=== PATIENT | male | born 1950 | race Caucasian/White ===

== ENCOUNTER 2020-10-16 17:03 | Emergency (ER) | payer MEDICARE, SELFPAY ==
--- NOTE | ~2020-10-16 | XR_ITS ---
XR finger 1st RT min 2V 10/16/2020 17:34 Indication: Right first finger pain Procedure: 3 views right first finger Comparison: No prior studies for comparison. Findings: No fracture, subluxation or dislocation. Mild degenerative changes of the MCP joint. There is a soft tissue laceration adjacent to the distal phalanx. No foreign bodies. Impression: 1: No acute fracture. Reviewed, dictated and finalized at location A. Impression: 1: No acute fracture.
[2020-10-16 17:12] VITALS: BP 144/82; PULSE 69; RESP 18; TEMP 36.8; O2SAT 98
--- NOTE | 2020-10-16 17:29 | ED.WOUNDLAC ---
HPI - Wound/Laceration General Chief Complaint: Wound/Laceration Stated Complaint: thumb vs table saw Time Seen by Provider: 10/16/20 17:06 Source: patient Mode of arrival: ambulatory Limitations: no limitations History of Present Illness HPI narrative: This is a 69-year-old male that presents the emergency department for right first finger laceration sustained just prior to arrival. Reports he was cutting down boards with a table saw. Reports he accidentally cut his thumb. Reports bleeding and pain to the area. He is not up-to-date on tetanus. Denies decreased range of motion or numbness. Related Data Home Medications Medication Instructions Recorded Confirmed aspirin 81 mg tablet,delayed 81 mg PO DAILY 08/03/19 09/06/20 release ferrous sulfate 325 mg (65 mg 325 mg PO BID 09/08/19 09/06/20 iron) tablet omega-3 fatty acids 1,000 mg 2,000 mg PO BID cap 09/06/20 09/06/20 capsule Allergies Allergy/AdvReac Type Severity Reaction Status Date / Time No Known Allergies Allergy Verified 09/06/20 09:35 Review of Systems Review of Systems: Narrative: CONSTITUTIONAL: Denies fever SKIN: Reports laceration NEUROLOGIC: Denies numbness All systems reviewed & are unremarkable except as noted in HPI and below PMFSH Past Medical History Medical History BMI 29.0-29.9,adult Coronary artery disease Diabetes Last A1C = 6.8 03/29/2020 Gout Heart disease Surgical History Surgical History History of bladder surgery 04/08/2019 History of heart bypass surgery 04/11/2019 Family History Family History Father Diabetes mellitus Hypertension Family history of cardiovascular disease Patient's father is , Onset Age: 74 Heart disease Sibling Diabetes mellitus Family history of cardiovascular disease Family history of cardiac disorder, Onset Age: 58 Mother Hypertension Family history of cardiovascular disease, Onset Age: 86 Cerebrovascular accident, Onset Age: 86 Social History Social History Smoking status: Never smoker Alcohol intake: current Additional living arrangements comments: , daughter & grandson Additional occupation/education comments: [employer] Exam Narrative: Exam Narrative: GENERAL: Well-appearing, well-nourished, and in no acute distress. HEAD: Normocephalic, atraumatic. EYES: EOMI. EXTREMITIES: Normal range of motion. No edema or obvious deformity. Right first finger 2.5cm flap laceration to the radial aspect. Normal sensation SKIN: Warm, dry, no rash. NEURO: No focal deficits. Alert and oriented x3. PSYCH: Normal mood and affect Course Vital Signs Vital signs: Vital Signs Temperature 98.2 F 10/16/20 17:12 Pulse Rate 69 10/16/20 17:12 Respiratory Rate 18 10/16/20 17:12 Blood Pressure 144/82 H 10/16/20 17:12 Pulse Oximetry 98 10/16/20 17:12 Temperature 98.2 F 10/16/20 17:12 Pulse Rate 60 10/16/20 18:32 Respiratory Rate 18 10/16/20 18:32 Blood Pressure 125/72 10/16/20 18:32 Pulse Oximetry 94 10/16/20 18:32 Procedures Laceration Laceration 1: Date: 10/16/20 Time: 19:31 Site: hand Side (If applicable): right Size (cm): 2.5 Description: flap Depth: simple, single layer Local Anesthetic: lidocaine 1% Amount of anesthesia used (mL): 3 Pre-repair: irrigated ====== Skin Level ====== Skin layer closed with: nylon Size (cm): 4-0 Number of sutures: 5 Technique: simple, interrupted ====== Subcutaneous Layer ====== ====== Muscle Layer ====== ====== Tendon Layer ====== MDM - Wound/Laceration MDM Narrative Medical decision making narrative: Patient presents the emergen
[2020-10-16] MEDS: TETANUS,DIPHTHERIA,AC PERTUSSIS ADULT (0.5 ML) BOOSTRIX IM (17:37)
[2020-10-16 18:32] VITALS: BP 125/72; PULSE 60; RESP 18; O2SAT 94
[2020-10-16 20:01] VITALS: BP 132/75; PULSE 84; RESP 18; O2SAT 100
== END 2020-10-16 20:03 | disposition home or self-care (01) ==
PROVIDERS: Emergency Provider Emergency Medicine; PCP Family Medicine
DX: S61.011A Laceration without foreign body of right thumb without damage to nail, initial encounter (principal); I25.10 Atherosclerotic heart disease of native coronary artery without angina pectoris; E11.9 Type 2 diabetes mellitus without complications; M10.9 Gout, unspecified; I51.9 Heart disease, unspecified; Z79.82 Long term (current) use of aspirin; Z23 Encounter for immunization; W31.2XXA Contact with powered woodworking and forming machines, initial encounter
CPT/HCPCS: 12001; 73140; 90471; 90715; 99283

== ENCOUNTER → 2020-10-18 13:21 | Outpatient (CLI) | payer MEDICARE, SELFPAY ==
--- NOTE | ~2020-10-18 | XR_ITS ---
XR foot RT 2V DATE: 10/18/2020 13:48 INDICATION: Right foot pain TECHNIQUE: AP and lateral views COMPARISON: None FINDINGS: No fracture or dislocation, periosteal reaction or bone destruction. Mild osteoarthritis of the first metatarsophalangeal and multiple interphalangeal joints. No erosive change. IMPRESSION: Mild polyarticular osteoarthritis Reviewed, dictated and finalized at location A.
== END ==
PROVIDERS: PCP Family Medicine; Visit Provider Physician Assistant
DX: M19.071 Primary osteoarthritis, right ankle and foot (principal)
CPT/HCPCS: 73620

== ENCOUNTER 2020-12-11 11:30 | Emergency (ER) | payer MEDICARE, SELFPAY ==
--- NOTE | 2020-12-11 11:35 | ED.URI ---
HPI - URI/Sore Throat General Chief Complaint: Upper Respiratory Infection Stated Complaint: SINUS CONGESTION/COUGH/SORE THROAT Source: patient and RN notes reviewed Limitations: no limitations History of Present Illness HPI Narrative: The patient, a non-smoker/ occ drinker on several meds inv oral diabetics, presents with half week history of scratchy/sore throat, congestion, cough, and mild hoarseness . He has completed single vaccination; no loss of taste/smell, CP, rash, S OB, vomiting/diarrhea,. Symptoms are mild, worse at night Related Data Home Medications Medication Instructions Recorded Confirmed aspirin 81 mg tablet,delayed 81 mg PO DAILY 08/03/19 12/11/20 release ferrous sulfate 325 mg (65 mg 325 mg PO BID 09/08/19 12/11/20 iron) tablet Allergies Allergy/AdvReac Type Severity Reaction Status Date / Time No Known Allergies Allergy Verified 12/11/20 11:36 Review of Systems Review of Systems: Narrative: General/Constitutional: No weight loss,fever Eyes: N0: Redness,discharge Ears/Nose/Throat: No: Epistaxis,ear discharge Respiratory: Denies: Hemoptysis Gastrointestinal: No Vomiting, Bleeding-rectal Skin: No Lumps, eruption Neurologic: No Focal Weakness,Sz Hematologic: Denies: Petechiae/Purpura Psychiatric: No: Suicida ideationl All Other Systems: Reviewed and Negative [facility] Past Medical History Medical History BMI 29.0-29.9,adult Coronary artery disease Diabetes Last A1C = 6.8 03/29/2020 Gout Heart disease Surgical History Surgical History History of bladder surgery 04/08/2019 History of heart bypass surgery 04/11/2019 Family History Family History Father Diabetes mellitus Hypertension Family history of cardiovascular disease Patient's father is , Onset Age: 74 Heart disease Sibling Diabetes mellitus Family history of cardiovascular disease Family history of cardiac disorder, Onset Age: 58 Mother Hypertension Family history of cardiovascular disease, Onset Age: 86 Cerebrovascular accident, Onset Age: 86 Social History Social History Alcohol intake: current Additional living arrangements comments: , daughter & grandson Additional occupation/education comments: [employer] Comments At time of signature, agree with nursing past medical, surgical, social and family history. There is no relevant family history pertinent to the presenting complaint Exam Narrative: Exam Narrative: General Appearance: Well appearing, Well nourished EYE: PERRLA, Conjunctiva clear Ears: Auditory canal normal, TM normal Nose: Rhinorrhea, Mucousal erythema Mouth/Throat: MM moist, Uvula midline, Pharyngeal erythema Neck: Supple, No adenopathy Respiratory: No respiratory distress, Breath sounds equal, Clear to auscultation Cardiovascular: RRR, No JVD Musculoskeletal: Non tender, Normal strength Skin: Warm, Dry Neurological: A&O x3, CN II-XII intact Psychiatric: Normal mood, Normal affect Course Vital Signs Vital signs: Vital Signs Temperature 97.3 F L 12/11/20 11:39 Pulse Rate 61 12/11/20 11:39 Respiratory Rate 20 12/11/20 11:39 Blood Pressure 155/77 H 12/11/20 11:39 Pulse Oximetry 100 12/11/20 11:39 Temperature 97.3 F L 12/11/20 11:39 Pulse Rate 61 12/11/20 11:39 Respiratory Rate 20 12/11/20 11:39 Blood Pressure 155/77 H 12/11/20 11:39 Pulse Oximetry 100 12/11/20 11:39 MDM - URI/Sore Throat Lab Data Labs: Lab Results 12/11/20 Range/Units 11:46 SARS-CoV-2 RNA (RT-PCR) Negative Discharge Plan Discharge Clinical Impression: Pharyngitis, acute Qualifiers: Pharyngitis/tonsillitis etiology: unspecified etiology Qualified Code(s): J02.9 - Acute ph
[2020-12-11 11:39] VITALS: BP 155/77; PULSE 61; RESP 20; TEMP 36.3; O2SAT 100
[2020-12-12 19:19] LABS: SARS-CoV-2 RNA PCR Negative
== END 2020-12-11 12:15 | disposition home or self-care (01) ==
PROVIDERS: Emergency Provider Emergency Medicine; PCP Family Medicine
DX: J02.9 Acute pharyngitis, unspecified (principal); Z20.822 Contact with and (suspected) exposure to COVID-19; I25.10 Atherosclerotic heart disease of native coronary artery without angina pectoris; E11.9 Type 2 diabetes mellitus without complications; M10.9 Gout, unspecified; Z79.82 Long term (current) use of aspirin
CPT/HCPCS: 99213; C9803; G0463; U0003; U0005

== ENCOUNTER 2021-07-30 17:21 | Emergency (ER) | payer MEDICARE, SELFPAY ==
[2021-07-30 17:26] VITALS: BP 173/73; PULSE 60; RESP 16; TEMP 35.9; O2SAT 100
--- NOTE | 2021-07-30 17:55 | ED.URI ---
HPI - URI/Sore Throat General Chief Complaint: Upper Respiratory Infection Stated Complaint: cough Source: patient and RN notes reviewed Mode of arrival: ambulatory History of Present Illness HPI Narrative: This is a 70-year-old male who presented to urgent care with complaints of a uncontrollable cough that is productive he is unsure of the color because he swallows the mucus. Patient did test positive for Covid on June 19 and had mild symptoms such as a cough for approximately 1 day. Patient notes that his cough returned which is causing him abdominal discomfort due to excessive coughing, and nasal and head congestion. Patient notes that he has not taken anything at home other than Flonase. The patient denies SOB, CP, palpitation, extremity numbness, lightheadedness, dizziness, constipation, diarrhea, chills, or fever. Related Data Home Medications Medication Instructions Recorded Confirmed aspirin 81 mg tablet,delayed 81 mg PO DAILY 08/03/19 03/06/21 release ferrous sulfate 325 mg (65 mg 325 mg PO BID 09/08/19 03/06/21 iron) tablet omega-3 fatty acids 1,000 mg 1,000 mg PO DAILY 03/06/21 03/06/21 capsule Allergies Allergy/AdvReac Type Severity Reaction Status Date / Time No Known Allergies Allergy Verified 03/06/21 08:35 Review of Systems Review of Systems: A 14 organ system Review of Systems was performed and pertinent positives included in the HPI, otherwise remaining ROS is negative. [facility] Past Medical History Medical History BMI 29.0-29.9,adult Coronary artery disease Diabetes Last A1C = 6.8 03/29/2020 Gout Heart disease Surgical History Surgical History History of bladder surgery 04/08/2019 History of heart bypass surgery 04/11/2019 Family History Family History Father Diabetes mellitus Hypertension Family history of cardiovascular disease Patient's father is , Onset Age: 74 Heart disease Sibling Diabetes mellitus Family history of cardiovascular disease Family history of cardiac disorder, Onset Age: 58 Mother Hypertension Family history of cardiovascular disease, Onset Age: 86 Cerebrovascular accident, Onset Age: 86 Social History Social History Smoking status: Never smoker Alcohol intake: current Alcohol use details: occasional Additional living arrangements comments: , daughter & grandson Additional occupation/education comments: [employer] Exam Narrative: GENERAL: This is a well-nourished, well-developed patient, in no apparent distress. HEAD: normocephalic, atraumatic. EYES: PERRL. Sclera clear/white. Vision is grossly intact. EARS: External ears normal, auditory canals clear and without drainage, TMs normal without perforation. Hearing grossly intact. NOSE: External nose normal with no obvious nasal discharge, nares without redness, no rhinorrhea. THROAT: Mucous membranes moist, posterior pharynx clear. NECK: Neck supple, non-tender without lymphadenopathy, masses or thyromegaly. CARDIOVASCULAR: Regular rate and rhythm without murmurs, gallops, or rubs. RESPIRATORY: Clear to auscultation. Breath sounds equal bilaterally. No wheezes, rales, or rhonchi. GASTROINTESTINAL: Abdomen soft, non-tender, nondistended. Bowel sounds are active. No hepato-splenomegaly, or palpable masses. No guarding. SKIN: warm, intact with no suspicious lesions or rash, good texture and turgor. NEURO: awake, alert, and oriented to person, place and time. There were no obvious focal neurologic abnormalities. Steady gait EXTREMITIES: Normal range of motion. No edema. No calf tenderness. Negative Homans sign bilaterally. BACK: Nontender without deformity or crepitance. No flank tenderness. Course Course Emergency
== END 2021-07-30 18:09 | disposition home or self-care (01) ==
PROVIDERS: Emergency Provider Nurse Practitioner; PCP Family Medicine
DX: U09.9 Post COVID-19 condition, unspecified (principal); I25.10 Atherosclerotic heart disease of native coronary artery without angina pectoris; E11.9 Type 2 diabetes mellitus without complications; M10.9 Gout, unspecified; Z95.1 Presence of aortocoronary bypass graft
CPT/HCPCS: 99213; G0463

== ENCOUNTER → 2021-09-26 07:54 | Outpatient (CLI) | payer MEDICARE, SELFPAY ==
--- NOTE | ~2021-09-26 | MR_ITS ---
EXAMINATION: MR foot RT wo con DATE: 09/26/2021 08:38 INDICATION: Right midfoot sprain TECHNIQUE: Magnetic resonance imaging (MRI) of the right foot excluding portions of the toes was perf ormed without intravenous contrast. Sequences included sagittal T1-weighted FSE, sagittal fluid sensi tive FSE STIR, coronal PD-weighted FS FSE, coronal T1-weighted FSE, axial PD-weighted FS FSE, and axi al PD-weighted FSE. COMPARISON: Right foot radiographs dated 10/18/2020 FINDINGS: Bone alignment is normal. There is marrow edema at the medial/distal corner of the cuboid surrounding a nondisplaced low signal intensity fracture line. 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 Marrow signal is otherwise normal. No other fractures identified. Mild osteoarthritis at the first me tatarsophalangeal joint. The medial and lateral stabilizing ligaments at the ankle are normal along with the spring ligament c omplex. The Lisfranc ligament complex is normal. The collateral ligament complex at the metatarsophal angeal joints are normal. The flexor and extensor tendons are normal. There is prominent thickening a nd increased signal of the lateral and horizontal components of the plantar aponeurosis consistent wi th moderate enthesopathy without discrete tear or surrounding edema to suggest acute plantar fasciiti s. Small plantar calcaneal spur. There is likely reactive edema related to the cuboid fracture in the soft tissues and musculature plantar and lateral to the cuboid. Physiologic amount of fluid in the j oint spaces. IMPRESSION: 1. 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 2. Moderate plantar enthesopathy without tear or significant surrounding edema to suggest acute plant ar fasciitis. Reviewed, dictated and finalized at location A. EYBALL REFEREE IMPRESSION: 1. 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 2. Moderate plantar enthesopathy without tear or significant surrounding edema to suggest acute plantar fasciitis.
== END ==
PROVIDERS: PCP Family Medicine; Visit Provider Podiatrist Foot & Ankle Surgery
DX: S93.611A Sprain of tarsal ligament of right foot, initial encounter (principal); X58.XXXA Exposure to other specified factors, initial encounter; M77.31 Calcaneal spur, right foot
CPT/HCPCS: 73718

== ENCOUNTER 2022-01-03 10:36 | Outpatient (CLI) | payer MEDICARE, SELFPAY ==
--- NOTE | ~2022-01-03 | US_ITS ---
US venous doppler LE RT DATE: 01/03/2022 11:10 INDICATION: Right ankle and foot swelling. History of right foot fracture of July 2021. TECHNIQUE: Real-time and color flow imaging and Doppler analysis of the veins of the right lower extr emity COMPARISON: None FINDINGS: The right greater saphenous vein is patent. There is spontaneous and phasic flow and normal augmentation and color flow signal and normal compression of the deep veins of the right lower extre mity. IMPRESSION: No evidence of deep venous thrombosis of right lower extremity Reviewed, dictated and finalized at Location A. Reviewed, dictated and finalized at location A.
== END 2022-01-03 10:37 | disposition home or self-care (01) ==
PROVIDERS: PCP Family Medicine; Visit Provider Physician Assistant
DX: M79.89 Other specified soft tissue disorders (principal)
CPT/HCPCS: 93971

== ENCOUNTER 2022-05-08 14:30 | Outpatient (RCR) | payer MEDICARE, SELFPAY ==
--- NOTE | 2022-03-14 10:08 | PTOPEVAL ---
PHYSICAL THERAPY INITIAL EVALUATION. Thank you for referring Tushar Marques to [facility].? The patient is scheduled to be seen for therapy? 2x/week for 4 weeks. Please review, sign, date and return this plan of care OJ. I agree with and certify that the following plan of care is medically necessary. Referring Physician Date Attending Provider: Agustin Parker APN *PT Outpatient Evaluation Start: 03/14/22 Evaluation Information Diagnosis L hip pain Onset 3 month Subjective Information Pt states for the last 3 Query Text:As Reported By Patient/ months he has had a slow Family increase in hip pain. It has been the worst in the last 3 weeks. He states he is feeling pretty good today, most of his pain is after sitting or laying in one position for too long, particularly in the morning. He states his pain is better after he is able to get moving. He states he works on [employer] and has started to have to push a shopping cart around because the pain will catch him and almost cause him to fall. Pt states last winter he had a boot on his R foot, this was taken off around November right around when his hip pain started. Pain Assessment Self Report Pain Assessment Left Hip(s) Reported Pain Level 0 Pain Description Sharp Pain Frequency Acute,Intermittent Lowest Pain Intensity 0 Greatest Pain Intensity 5 Pain Aggravating Factors Prolonged Position,Weight Bearing/Standing Lower Extremity Range of Motion General Lower Extremity Range of Motion WFL/Left,WFL/Right Lower Extremity Muscle Strength Testing General Lower Extremity Strength WFL/Left,WFL/Right Gross Lower Extremity Strength R hip flexion 4+/5 L hip flexion 4/5 R hip abduction 2/5 L hip abduction 3/5 otoniel hip extension 4/5 otoniel knee flexion/extension 5/5 Muscle Length Testing Two-Joint Hip Flexor Shortened Muscles Short (R) Rectus Femoris,Short (L) Rectus Femoris Right Prone Hip Internal Rotator Length 10 Left Prone Hip Internal Rotator Length ( 10 Right Prone Hip External Rotator Length 30 Left Prone Hip
--- NOTE | 2022-04-10 15:44 | PTOPPROG ---
Evaluation Information Assessment Status Progress Diagnosis L hip pain Onset 4 months Subjective Information He states his hip is getting a lot better. Pt states he is able to sleep and wake up without pain. He states at the end of his work day he is a little sore, and he feels a little pain when he is twisting. 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 He states he is able to put a pair of pants on standing up. He reports he still has the most difficulty in a soft chair. Pt reports he is better able to stand up from the ground without his hands, but still struggles. Pt reports 75% improvement in overall symptoms. Assessment PT Clinical Summary Tushar presents to therapy today for his progress report following 8 visits of therapy. Today he reports 75% improvement in overall symptoms, he reports no pain for the last 5 days. He continues to demonstrates weakness in his hips otoniel leading to gait deviations and balance deficits. Continuation of skilled physical therapy services are indicated to improve strength, balance, functional mobility, and to return to baseline function. Plan of Care Interventions Gait Training,Hot Pack/Cold Pack,Manual Therapy, Neuro Re-education,Patient/Caregiver Educati, Therapeutic Activities,Therapeutic Exercise PT Services Indicated Yes Treatment Frequency and continue 2x/wk for 4 wks Duration These treatments will address the objective and functional deficits as defined above. The patient will be advanced safely and appropriately in order for the patient to progress towards his/her prior level of function. Additional exercises will be introduced and as well as a comprehensive home exercise program upon discharge, if needed, ?to ensure carryover of functional gains achieved in the clinic. This treatment plan has been reviewed and agreement upon by the patient.
--- NOTE | 2022-05-08 15:22 | PTOPDC ---
Assessment and note entered by Rizwana Portillo, PT, DPT Evaluation Information Assessment Status Discharge Diagnosis L hip pain Onset 4 months Subjective Information Pt states his hip is doing great. Pt states he is a little sore in the morning when he first wakes up, but as soon as he gets up and moving his pain starts to decreased almost instantly. He can work and make it through an 8 hour shift without an increase in pain. He states randomly when he moves he was get a quick pain but it starts to subside. He states he can walk around work without needing to rely on a cart to help him. He reports a 1/10 as the worst pain in the last week. Reported Pain Level Pain Score 0: Self Report Assessment PT Clinical Summary Tushar presents to therapy today for his progress report following 16 visits of skilled therapy to treat his otoniel hip pain. Today he reports excellent compliance with his HEP and has progressed towards or met all of his therapy goals. Skilled physical therapy services are no longer indicated and he still be discharged at this time with instructions to continue his HEP upon discharge and to follow up with his referring provider if needed. Plan of Care PT Services Indicated No Treatment Frequency and to be discharged Duration
== END 2022-05-15 14:15 | disposition home or self-care (01) ==
LOC: ANHPT 14:30
PROVIDERS: PCP Physician Assistant; Visit Provider Nurse Practitioner
DX: M25.552 Pain in left hip (principal)
CPT/HCPCS: 97110; 97112; 97140; 97161; 97530

== ENCOUNTER 2022-07-06 12:31 | Outpatient (CLI) | payer MEDICARE, SELFPAY ==
--- NOTE | 2022-07-06 12:36 | ECHO_ITS ---
Patient Info Name: Tushar Marques Age: 71 years : 1950 Gender: Male Ht: 73 in Wt: 235 lbs BSA: 2.37 m2 HR: 69 bpm BP: 136 / 72 mmHg Technical Quality: Fair Exam Date: 07/06/2022 1:08 PM Exam Location: [facility] Patient Status: Outpatient Admit Date: 07/06/2022 Staff Ordering Physician: Chadwick Law DO Gluing Machine Feeder: Debra Holland RDCS Attending Provider: Chadwick Law DO Referring Physician: Thanh LUGO; Exam Type: CA echo doppler color flow Study Info Indications R60.0 - Localized edema Complete two-dimensional, color flow and Doppler transthoracic echocardiogram is performed. Summary 1. Complete two-dimensional, color flow and Doppler transthoracic echocardiogram is performed. 2. Left ventricular chamber dimension is normal. 3. Left ventricular systolic function is normal, estimated at 60-65%. 4. The left ventricular diastolic function is grade I diastolic dysfunction. 5. E/e' 10 is mildly elevated. 6. Global longitudinal strain is abnormal at -15.7%. 7. No pulmonary hypertension, estimated pulmonary arterial systolic pressure is 27 mmHg. Left Ventricle E/e' 10 is mildly elevated. Global longitudinal strain is abnormal at -15.7%. Left ventricular chamber dimension is normal. Left ventricular systolic function is normal, estimated at 60-65%. The left ventricular diastolic function is grade I diastolic dysfunction. Right Ventricle Right ventricular systolic function is normal and with normal TAPSE 2.2 cm. Right ventricular chamber dimension is normal. Left Atria Left atrial chamber dimension is normal. Right Atria Right atrial chamber dimension is normal. Aortic Valve The aortic valve is trileaflet. There is no aortic valve stenosis. There is no aortic valve regurgitation. Pulmonic Valve There is no pulmonic regurgitation. Mitral Valve There is no mitral valve stenosis. There is no mitral valve regurgitation. Tricuspid Valve There is no tricuspid valve regurgitation. No pulmonary hypertension, estimated pulmonary arterial systolic pressure is 27 mmHg. Pericardium/Pleural There is no pericardial effusion. Inferior Vena Cava Normal inferior vena cava with >50% collapse upon inspiration consistent with normal right atrial pressure, 5 mmHg. Aorta The aortic root size at the sinus of Valsalva is normal. Left Ventricular Outflow Tract Name Value Normal LVOT 2D LVOT Diameter 2.0 cm LVOT Doppler LVOT Peak Gradient 6 mmHg LVOT Mean Gradient 3 mmHg LVOT VTI 25 cm LVOT VTI/AV VTI Ratio 1.0 LVOT Stroke Volume 81 ml LVOT CO 5.0 l/min LVOT CI 2.1 l/min/m2 Pulmonic Valve Name Value Normal RVOT Doppler
== END 2022-07-06 12:32 | disposition home or self-care (01) ==
LOC: ANHCARD 12:34
PROVIDERS: PCP Emergency Medicine; Visit Provider Internal Medicine Cardiovascular Disease
DX: R60.0 Localized edema (principal)
CPT/HCPCS: 93306

== ENCOUNTER → 2022-09-26 14:15 | Outpatient (CLI) | payer MEDICARE, SELFPAY ==
--- NOTE | ~2022-09-26 | US_ITS ---
EXAMINATION: US scrotum doppler DATE: 09/26/2022 14:50 INDICATION: S39.94XA - Unspecified injury of external genitals, initi... . TECHNIQUE: Grayscale and Doppler ultrasound images of the testes were obtained. COMPARISON: None. FINDINGS: The right testis measures 5.3 x 2.1 x 4.5 cm. The left testis measures 4.8 x 3.7 x 3.8 cm. No testicular mass. There is increased vascularity in the left testicle. The right epididymis is hete rogeneous, with multiple cysts measuring up to 1.4 cm, and with normal vascular flow. The left epidid ymis is hypervascular, with small cysts. Complex left hydrocele. Left varicocele. Circumscribed, simp le, avascular 3.2 x 2.0 x 1.9 cm cystic lesion in the right scrotum, clearly separate from the right testicle. IMPRESSION: 1. Complex left hydrocele, likely representing a hematocele given the history of trauma. 2. Hyperemic left testicle and epididymis, also likely related to recent trauma, noting that infectio n cannot be excluded based solely on imaging. 3. Left varicocele. 4. 3.2 cm simple appearing cyst in the right scrotum, likely tunica cyst, or cyst of the epididymal b stacy or tail, and of doubtful clinical significance. Reviewed, dictated and finalized at location K. MIX OPERATOR IMPRESSION: 1. Complex left hydrocele, likely representing a hematocele given the history o f trauma. 2. Hyperemic left testicle and epididymis, also likely related to recent trauma , noting that infection cannot be excluded based solely on imaging. 3. Left varicocele. 4. 3.2 cm simple appearing cyst in the right scrotum, likely tunica cyst, or cy st of the epididymal body or tail, and of doubtful clinical significance.
== END ==
PROVIDERS: PCP Emergency Medicine; Visit Provider Emergency Medicine
DX: S39.94XA Unspecified injury of external genitals, initial encounter (principal); X58.XXXA Exposure to other specified factors, initial encounter; N43.3 Hydrocele, unspecified; I86.1 Scrotal varices
CPT/HCPCS: 76870; 93976

== ENCOUNTER 2024-01-14 11:22 | Outpatient (CLI) | payer MEDICARE, SELFPAY ==
--- NOTE | ~2024-01-14 | MR_ITS ---
Procedure: MR lumbar spine wo con Ordering provider: Kana Hargrove MD History: 73 years Male with . M54.40 - Lumbago with sciatica, unspecified side . Comparison: None. Technique: MRI lumbar spine without contrast. FINDINGS: CONUS MEDULLARIS: Normal in position and appearance. The conus ends at the level of L1. LUMBAR VERTEBRAL BODIES: Loss of volume of L4 is noted more on the left side of the body of L4 with a fracture. The fracture mixed intensity of the bone marrow. Destructive changes seen posteriorly and L5. DISK SPACES: Narrowing of the disc L4-L5 and L3-L4. T12-L1: No stenosis. L1-L2: No stenosis. Mild disc bulge. L2-L3: Severe spinal canal stenosis secondary to broad based disc bulge, facet arthropathy, and liga mentum flavum hypertrophy. Bilateral narrowing of the foramina of the root compression. L3-L4: L4-L5: Mild spinal canal stenosis secondary to broad based disc bulge with a right posterolateral di sc protrusion, facet arthropathy, and ligamentum flavum hypertrophy with narrowing of the foramina a nd nerve root compression. L5-S1: No stenosis. Disc protrusion with bilateral narrowing of the foramina and the root compressio n. PARASPINOUS SOFT TISSUES: Normal. IMPRESSION: 1. Fracture of L4 with fragment seen on the left side and with vertical defect. 2. Multilevel degenerative disc disease with the maximum changes seen at the level of L1-L2 which sh ows severe spinal canal with bilateral narrowing of the foramina and bilateral nerve root compression 3. L4-L5 disc protrusion causing narrowing of the right lateral recess and intervertebral foramina w ith root compression. Reviewed, dictated and finalized at location A. IMPRESSION: 1. Fracture of L4 with fragment seen on the left side and with vertical defect . 2. Multilevel degenerative disc disease with the maximum changes seen at the l evel of L1-L2 which shows severe spinal canal with bilateral narrowing of the f oramina and bilateral nerve root compression 3. L4-L5 disc protrusion causing narrowing of the right lateral recess and int ervertebral foramina with root compression.
== END 2024-01-14 11:23 ==
LOC: GOSHIMG 11:24
PROVIDERS: PCP Emergency Medicine; Visit Provider Emergency Medicine
DX: M54.40 Lumbago with sciatica, unspecified side (principal)
CPT/HCPCS: 72148

== ENCOUNTER 2024-02-20 09:36 | Outpatient (CLI) | payer MEDICARE, SELFPAY ==
--- NOTE | ~2024-02-20 | US_ITS ---
EXAMINATION:US venous doppler LE RT INDICATION:Right leg pain TECHNIQUE: Multiple grayscale, color flow and Doppler images of the right lower extremity deep venous systems were obtained and reviewed. COMPARISON:Ultrasound dated 01/03/2022 FINDINGS: The common femoral, superficial femoral and popliteal veins demonstrate normal respiratory variation, augmentation and compressibility. Color flow is also seen within the posterior tibial, pe roneal, greater saphenous and profunda veins. IMPRESSION: 1: No lower extremity deep venous thrombosis. Reviewed, dictated and finalized at location B.
--- NOTE | ~2024-02-20 | US_ITS ---
US arterial ankle brachial ind INDICATION: Type 2 diabetes. Previous stroke. High cholesterol. TECHNIQUE: Segmental pressures and plethysmographic and Doppler waveforms of the brachial and lower e xtremity arteries were obtained. COMPARISON: None. FINDINGS: Right and left brachial artery pressures of 143 mm Hg and 149 mm Hg, respectively, are concordant (no rmal difference <= 30 mmHg). The right ankle-brachial index (QIANA) is 1.1 (normal >= 0.9-1.0). The right great toe-brachial index ( TBI) is 0.79 (normal >= 0.60). The left QIANA is 1.22. The left TBI is 0.72. IMPRESSION: 1. Normal ankle-brachial indices. Reviewed, dictated and finalized at location B.
== END 2024-02-20 09:37 | disposition home or self-care (01) ==
PROVIDERS: PCP Emergency Medicine; Visit Provider Nurse Practitioner Family
DX: E11.59 Type 2 diabetes mellitus with other circulatory complications (principal); M79.604 Pain in right leg; M79.89 Other specified soft tissue disorders
CPT/HCPCS: 93922; 93971

== ENCOUNTER 2024-04-08 15:45 | Outpatient (RCR) | payer MEDICARE, SELFPAY ==
--- NOTE | 2024-02-22 11:01 | PTOPEVAL1 ---
Assessment and note entered by Leonela Plata, PT Evaluation Information Assessment Status Evaluation Diagnosis M54.40 ICD-10 Condition Codes (PT) M54.16,Repeated falls R29.6,R26.9,Weakness R53.1 Onset Sep 2023 Subjective Information Pt recalls falling last Sep this year, on the basement stairs while carrying a crockpot, fell forwards and to the L side landing on the concrete ; states that he tripped over a tread on the step with his R foot. Reports has been having some numbness to RLE in the past but may have been aggravated after the fall. States that he is having pain across the low back, weakness and numbness increasing going down to the R LE, sore on B upper hip area, no pain goes down to LLE, however he feels numbness and tingling and shoes feel tight bilaterally. Pain and discomfort has been worse in the past 2 weeks. States that after being in a prolonged position he feels stiff and sore. Reported Pain Level Pain Score 0: Self Report Additional Pain Score Comments Does not feel pain at the moment, the discomfort increases with prolonged standing/walking. Reports he is having difficulty with putting shoes on L side, unable to perform figure of four position to LLE. Assessment PT Clinical Summary Pt is a 73yo male patient who presents to therapy with c/o back pain radiating to RLE, demos decreased ROM to lumbar spine, significant L hip hypomobility, BLE weakness, radicular symptoms to B feet. Pt also reported falls and near fall incidents. He will greatly benefit from skilled PT to address deficits and reduce risk for falls. Plan of Care Interventions Check Out for Orthotic/Pr,Electrical Stimulation, Gait Training,Hot Pack/Cold Pack,Manual Therapy, Mechanical Traction,Neuro Re-education,Patient/ Caregiver Education,Therapeutic Activities, Therapeutic Exercise,Ultrasound PT Services Indicated Yes Treatment Frequency and 2x/wk x 10 visits Duration These treatments will address the objective and functional deficits as defined above. The patient will be advanced safely and appropriately in order for the patient to progress towards his/her prior level of function. Additional exercises will be introduced and as well as a comprehensive home exercise program upon discharge, if needed, ?to ensure carryover of functional gains achieved in the clinic. This treatment plan has been reviewed and agreement upon by the patient.
--- NOTE | 2024-03-11 15:37 | PCPTNOTE ---
No call no show, reason unknown. AKKimber
--- NOTE | 2024-03-13 16:13 | PCPTNOTE ---
Pt no showed visit today.
--- NOTE | 2024-04-08 16:29 | PTOPDC ---
Assessment and note entered by Apoorva Berry, PT Discharge Report Assessment Status Discharge Diagnosis M54.40 ICD-10 Condition Codes (PT) M54.16,Repeated falls R29.6,R26.9,Weakness R53.1 Onset Sep 2023 Subjective Information therapy is going good-- getting stronger and more flexible; pain is less; have been doing the exercises as I can; am doing everything at home that usually do; work at [employer] 40 hours/wk; have been going to chiropractor as needed for sciatica and helping the pain; wants to go on his own with the exercises and stop therapy for now. Reported Pain Level Pain Score 0: Self Report Additional Pain Score Comments in the past few days, back hurts when first wake up in the morning 1-2/10; after get up and stretch is gone; range 0-2/10 no hip pain; have R foot pain with walking; Assessment PT Clinical Summary Tushar has received 8 PT sessions, from February 20 to today. He did not show for 2 appointments. Compared to the initial eval he has improved in all areas: pain from 0-5/10 to 0-2/10; no longer reports pain in his R hip; Moon balance score from 33 to 51/56; 2 minute walking testing distance from 314 to 475'; Oswestry self functional score of 22 to 2%; strength has improved, but most limited with single leg standing on R LE, hip weakness and causes pain R foot; education completed for HEP and body mechanics, with pain management. The goals were partially met. Discharge PT. He is to continue with his HEP and activity management. Plan of Care PT Services Indicated No
== END 2024-04-09 10:56 | disposition home or self-care (01) ==
LOC: ANHPT 15:45
PROVIDERS: PCP Emergency Medicine; Visit Provider Emergency Medicine
DX: M54.40 Lumbago with sciatica, unspecified side (principal)
CPT/HCPCS: 97014; 97110; 97140; 97161; 97530; G0283

== ENCOUNTER 2024-05-06 08:00 | Emergency (ER) | payer OTHER, MEDICARE, SELFPAY ==
[2024-05-06 08:17] VITALS: BP 131/71; PULSE 69; RESP 16; TEMP 35.9; O2SAT 99
--- NOTE | 2024-05-06 08:28 | ED.WOUNDLAC ---
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 He is up-to-date on his tetanus vaccine. Minimal pain currently. Denies numbness or tingling. Related Data Home Medications Medication Instructions Recorded Confirmed aspirin 81 mg tablet,delayed 81 mg PO DAILY 08/03/19 03/19/24 release (Adult Low Dose Aspirin) ferrous sulfate 325 mg (65 mg 325 mg PO BID 09/08/19 03/19/24 iron) tablet omega-3 fatty acids 1,000 mg 2,000 mg PO BID 09/10/22 03/19/24 capsule (Fish Oil Concentrate) Allergies Allergy/AdvReac Type Severity Reaction Status Date / Time No Known Allergies Allergy Verified 05/06/24 08:24 Review of Systems Review of Systems: CONSTITUTIONAL: Denies body aches, fever, chills, or sweats. EYES: Denies visual changes, redness, or discharge. ENT: Denies rhinorrhea, congestion, sore throat, or otalgia. CARDIOVASCULAR: Denies chest pain, palpitations, or edema. RESPIRATORY: Denies cough or dyspnea. GASTROINTESTINAL: Denies abdominal pain, nausea, vomiting, or diarrhea. GENITOURINARY: Denies dysuria or hematuria. SKIN: Denies rash, itching. + left thumb laceration MUSCULOSKELETAL: Denies back pain, joint pain, or myalgia. NEUROLOGIC: Denies headache, numbness, tingling, or weakness. PSYCH: Denies depression or anxiety. [facility] Past Medical History Medical History BMI 29.0-29.9,adult Coronary artery disease Diabetes Gout Heart disease Surgical History Surgical History History of bladder surgery 04/08/2019 History of heart bypass surgery 04/11/2019 Family History Family History Father Diabetes mellitus Hypertension Family history of cardiovascular disease Patient's father is , Onset Age: 74 Heart disease Sibling Diabetes mellitus Family history of cardiovascular disease Family history of cardiac disorder, Onset Age: 58 Mother Hypertension Family history of cardiovascular disease, Onset Age: 86 Cerebrovascular accident, Onset Age: 86 Social History Social History Smoking status: Never smoker Alcohol intake: current Alcohol use details: occasional Do You Feel Safe in your Home?: Yes Lack of Transportation: No Lack of Food: Never True Current Housing: I Have Housing Concerned About Future Housing: No Difficulty Paying Gas/Electric Bills: No Difficulty Paying for Meds: No Currently Unemployed: No Education: Associate Degree Difficulty w/ Childcare or Family Care: No Living arrangements: alone Additional living arrangements comments: , daughter & grandson Occupation/Education: occupation Additional occupation/education comments: [employer] Comments At time of signature, I have reviewed and agree with nursing past medical, surgical, social and family history unless otherwise noted. Please see nursing chart for further information. There is no relevant family history pertinent to the presenting complaint Exam Narrative: GENERAL: Well-appearing, well-nourished, and in no acute distress. HEAD: Normocephalic, atraumatic. EYES: EOMI. No redness or drainage. Conjunctivae normal. ENT: Mucous membranes pink and moist. NECK: Normal AROM. CHEST: No respiratory distress. EXTREMITIES: Left thumb: 2 cm full-thickness linear laceration to the medial side of the IPJ. No active bleeding. Distal sens
[2024-05-06] MEDS: LIDOCAINE HCL 1% LOCAL INJ 2 ML AMPUL 6 ML INFILTRATE (08:34)
--- NOTE | 2024-05-06 09:02 | PC.NURSE ---
WOUND IS BEING REPAIRED AT THIS TIME.
[2024-05-06 09:25] VITALS: BP 136/70; PULSE 71; RESP 18; O2SAT 99
== END 2024-05-06 09:25 | disposition home or self-care (01) ==
PROVIDERS: Emergency Provider Nurse Practitioner; PCP Emergency Medicine
DX: S61.012A Laceration without foreign body of left thumb without damage to nail, initial encounter (principal); W27.8XXA Contact with other nonpowered hand tool, initial encounter; Y99.0 Civilian activity done for income or pay; I25.10 Atherosclerotic heart disease of native coronary artery without angina pectoris; E11.9 Type 2 diabetes mellitus without complications; M10.9 Gout, unspecified; Z95.1 Presence of aortocoronary bypass graft
CPT/HCPCS: 12001; 99213; G0463; J2003

== ENCOUNTER 2024-11-29 14:55 | Emergency (ER) | payer OTHER, MEDICARE, SELFPAY ==
--- NOTE | ~2024-11-29 | XR_ITS ---
XR finger 1st LT min 2V Ordering provider: Luly Macdonald APRN History: . finger lac from table saw . Comparison: None. FINDINGS: BONES: Small bony fragment seen near to the base of the distal phalanx of the left thumb which may in dicate recent or old avulsion fracture. Clinical correlation advised.. JOINT SPACES: Normal. SOFT TISSUES: Laceration is seen in the soft tissue of the tip of the distal phalanx of the left thum b. IMPRESSION: Bony fragment near to the base of the distal phalanx of the left thumb posteriorly which is most like ly chronic. Clinical correlation advised. Laceration in the tip of the soft tissues of the left thumb distal phalanx.. Reviewed, dictated and finalized at location A. IMPRESSION: Bony fragment near to the base of the distal phalanx of the left thumb posterio rly which is most likely chronic. Clinical correlation advised. Laceration in the tip of the soft tissues of the left thumb distal phalanx..
[2024-11-29 15:15] VITALS: BP 143/69; PULSE 65; RESP 16; TEMP 36.2; O2SAT 97
--- NOTE | 2024-11-29 15:28 | ED.WOUNDLAC ---
HPI - Wound/Laceration General Chief Complaint: Wound/Laceration Stated Complaint: Cut Finger Source: patient Mode of arrival: ambulatory Limitations: no limitations History of Present Illness HPI narrative: 73 y/o male presented for complaint of laceration to left thumb sustained just prior to arrival. He states he cut the thumb on a table saw. He denies decreased range of motion. No treatment prior to arrival. Tetanus is up-to-date. Related Data Home Medications ?Medication ?Instructions ?Recorded ?Confirmed ?Last Taken ?Type aspirin 81 mg tablet,delayed 81 mg PO DAILY 08/03/19 11/29/24 Unknown History release (Adult Low Dose Aspirin) ferrous sulfate 325 mg (65 mg 325 mg PO BID 09/08/19 11/29/24 Unknown History iron) tablet omega-3 fatty acids 1,000 mg 1,000 mg PO DAILY 06/30/24 11/29/24 Unknown History capsule (Fish Oil Concentrate) Allergies Allergy/AdvReac Type Severity Reaction Status Date / Time No Known Allergies Allergy Verified 11/29/24 15:17 Review of Systems Review of Systems: CONSTITUTIONAL: Denies body aches, fever, chills, or sweats. CARDIOVASCULAR: Denies chest pain, palpitations, or edema. RESPIRATORY: Denies cough or dyspnea. GASTROINTESTINAL: Denies abdominal pain, nausea, vomiting, or diarrhea. SKIN: per HPI MUSCULOSKELETAL: Denies back pain, joint pain, or myalgia. NEUROLOGIC: Denies headache, numbness, tingling, or weakness. [facility] Past Medical History Medical History BMI 29.0-29.9,adult Heart disease Gout Diabetes Coronary artery disease Surgical History Surgical History History of heart bypass surgery 04/11/2019 History of bladder surgery 04/08/2019 Family History Family History Father Diabetes mellitus Hypertension Family history of cardiovascular disease Patient's father is , Onset Age: 74 Heart disease Sibling Diabetes mellitus Family history of cardiovascular disease Family history of cardiac disorder, Onset Age: 58 Mother Hypertension Family history of cardiovascular disease, Onset Age: 86 Cerebrovascular accident, Onset Age: 86 Social History Social History Smoking status: Never smoker Alcohol intake: current Alcohol use details: occasional Substance use: never Substance use type: does not use Do You Feel Safe in your Home?: Yes Lack of Transportation: No Lack of Food: Never True Current Housing: I Have Housing Concerned About Future Housing: No Difficulty Paying Gas/Electric Bills: No Difficulty Paying for Meds: No Currently Unemployed: No Education: Associate Degree Difficulty w/ Childcare or Family Care: No Living arrangements: alone Additional living arrangements comments: , daughter & grandson Occupation/Education: occupation Additional occupation/education comments: [employer] Comments At time of signature, I have reviewed and agree with nursing past medical, surgical, social and family history unless otherwise noted. Please see nursing chart for further information. There is no relevant family history pertinent to the presenting complaint Exam Narrative: GENERAL: Well-appearing ENT: Mucous membranes moist. Oropharynx without edema, erythema or lesions. NECK: Supple. No lymphadenopathy CHEST: Clear to auscultation. HEART: Regular rate and rhythm. SKIN: Warm, dry. Left thumb distal phalanx with 3cmx1.5cm irregular skin avulsion. No nail involvement. The nail appears to be regrowing from previous reported injury. CMS intact. NEURO: Alert and oriented x3. Course Course Emergency Course: Patient is aware of diagnosis, understands and agrees to treatment plan. Anticipatory guidance given. Patient agrees to follow-up as directed and is aware of reasons to seek care at the emergency department. Portions of this record may have been created with voice recognition software Level of Care: Express Care Visit Vital Signs Vital signs: Vital Signs Temperature 97.2 F L 11/29/24 15:15 Pulse Rate 65 11/29/24 15:15 Respiratory Rate 16 11/29/24 15:15 Blood Pressure 143/69 H 11/29/24 15:15 Pulse Oximetry 97 11/29/24 15:15 Temperature 97.2 F L 11/29/24 15:15 Pulse Rate 65 11/29/24 15:15 Respiratory Rate 16 11/29/24 15:15 Blood Pressure 143/69 H 11/29/24 15:15 Pulse Oximetry 97 11/29/24 15:15 Reviewed MDM - Wound/Laceration MDM Narrative Medical decision making narrative: Discussed physical exam findings; Skin avulsion to the left thumb, not amenable to suturing. Thumb xray shows fragment most likely due to the reciprocating saw injury sustained in Aug resulting in nail regrowth. Pt is advised at length the importance of f/u with hand specialist. Provided with Dr oDherty contact info. Also provided with other Hand specialist info if needed, and he will f/u with pcp tomorrow. Rx abx. Dressing applied per RN. Advised supportive measures and signs/symptoms to go to the ER. Pt is appropriate for outpt treatment and f/u. Differential Diagnosis Differential diagnosis: Likely laceration, abrasion and avulsion of skin Imaging Data Radiologist's impression: Patient: Tushar Marques : 1950 MR#: [id number] Age: 73 Acct:[id number] Loc: [facility] ADM Date: 11/29/24Attending Dr: Ordering Physician: Luly Macdonald APRN Date of Service: 11/29/24 Procedure(s): XR finger 1st LT min 2V Accession Number(s): [id number] cc: Luly Macdonald APRN; REPAIRER SCREEN CRUSHER PHYSICIAN~ XR finger 1st LT min 2V Ordering provider: Luly Macdonald APRN History: . finger lac from table saw . Comparison: None. FINDINGS: BONES: Small bony fragment seen near to the base of the distal phalanx of the left thumb which may indicate recent or old avulsion fracture. Clinical correlation advised.. JOINT SPACES: Normal. SOFT TISSUES: Laceration is seen in the soft tissue of the tip of the distal phalanx of the left thumb. IMPRESSION: Bony fragment near to the base of the distal phalanx of the left thumb posteriorly which is most likely chronic. Clinical correlation advised. Laceration in the tip of the soft tissues of the left thumb distal phalanx.. Discharge Plan Discharge Clinical Impression: Avulsion of skin of left thumb Patient Disposition: Home Condition: Stable Instructions: Antibiotic Form, Laceration (ED) Additional Instructions: Leave the dressing on for 24 hours Keep the area clean and dry - cleanse with warm water and mild soap and allow to fully dry. Ok to apply neosporin to the site, a non-stick pad, and gauze. Change daily. go to the ER for any worsening symptoms or concerns Follow up with primary care provider , call tomorrow to schedule an appointment Call the hand specialist to schedule follow-up appointment Patient Language: Greenlandic Prescriptions: New cephalexin 500 mg capsule 500 mg PO Q8H 5 Days Qty: 15 0RF No Action ferrous sulfate 325 mg (65 mg iron) tablet 325 mg PO BID aspirin [Adult Low Dose Aspirin] 81 mg tablet,delayed release (DR/EC) 81 mg PO DAILY niacin 250 mg tablet 250 mg PO DAILY Qty: 90 2RF omega-3 fatty acids [Fish Oil Concentrate] 1,000 mg capsule 1,000 mg PO DAILY metformin 500 mg tablet See Rx Instructions .ROUTE .COMPLEX Qty: 180 3RF Dose Instruction: TAKE 1 TABLET TWICE DAILY (NEED TO TAKE DAILY VIT B SUPPLEMENT WITH THIS) Rx Instructions: TAKE 1 TABLET TWICE DAILY (NEED TO TAKE DAILY VIT B SUPPLEMENT WITH THIS) lisinopril 5 mg tablet See Rx Instructions .ROUTE .COMPLEX Qty: 90 3RF Dose Instruction: TAKE 1 TABLET EVERY DAY Rx Instructions: TAKE 1 TABLET EVERY DAY metoprolol tartrate 50 mg tablet See Rx Instructions .ROUTE .COMPLEX Qty: 180 1RF Dose Instruction: TAKE 1 TABLET EVERY 12 HOURS Rx Instructions: TAKE 1 TABLET EVERY 12 HOURS atorvastatin 40 mg tablet See Rx Instructions .ROUTE .COMPLEX Qty: 90 1RF Dose Instruction: TAKE 1 TABLET EVERY DAY Rx Instructions: TAKE 1 TABLET EVERY DAY glimepiride 2 mg tablet See Rx Instructions .ROUTE .COMPLEX Qty: 90 1RF Dose Instruction: TAKE 1 TABLET EVERY DAY Rx Instructions: TAKE 1 TABLET EVERY DAY pioglitazone 30 mg tablet See Rx Instructions .ROUTE .COMPLEX Qty: 90 3RF Dose Instruction: TAKE 1 TABLET EVERY DAY Rx Instructions: TAKE 1 TABLET EVERY DAY allopurinol 100 mg tablet See Rx Instructions .ROUTE .COMPLEX Qty: 90 1RF Dose Instruction: TAKE 1 TABLET EVERY DAY Rx Instructions: TAKE 1 TABLET EVERY DAY Mounjaro 2.5 mg/0.5 mL pen injector 2.5 mg subcut WEEKLY Qty: 6 3RF tamsulosin 0.4 mg capsule 0.4 mg PO QHS Qty: 90 1RF Follow-up/Referrals: Leticia Doherty MD [Physician] - (avulsion of skin left thumb distal phalanx) PHYSICIAN,REPAIRER SCREEN CRUSHER [Primary Care Provider] - Time of Disposition: 16:37
--- NOTE | 2024-11-29 15:51 | PC.NURSE ---
moved to procedure room and cleansed with wound cleanser and saline. placed in soak.
== END 2024-11-29 17:02 | disposition home or self-care (01) ==
PROVIDERS: Emergency Provider Nurse Practitioner Family
DX: S61.002A Unspecified open wound of left thumb without damage to nail, initial encounter (principal); W31.2XXA Contact with powered woodworking and forming machines, initial encounter; I25.10 Atherosclerotic heart disease of native coronary artery without angina pectoris; E11.9 Type 2 diabetes mellitus without complications; Z79.84 Long term (current) use of oral hypoglycemic drugs; Z79.85 Long-term (current) use of injectable non-insulin antidiabetic drugs; M10.9 Gout, unspecified; Z95.1 Presence of aortocoronary bypass graft; Z79.82 Long term (current) use of aspirin
CPT/HCPCS: 73140; 99213; G0463

== ENCOUNTER 2025-06-07 09:18 | Emergency (ER) | payer MEDICARE, SELFPAY ==
--- NOTE | ~2025-06-07 | XR_ITS ---
EXAMINATION: XR shoulder LT min 2V, 06/07/2025 9:51 PHARMACIST PER DIEM HISTORY: fall 2 days ago. Anterior pain with movement COMPARISON: No comparisons available. Findings: No acute fracture or malalignment. No significant degenerative changes. Soft tissues unremarkable. Impression: No acute fracture or malalignment. Reviewed, dictated and finalized at location P. MACIST PER DIEM Impression: No acute fracture or malalignment.
[2025-06-07 09:31] VITALS: BP 136/77; PULSE 72; RESP 16; TEMP 36.4; O2SAT 100
--- NOTE | 2025-06-07 09:49 | ED_ITS ---
HPI - Extremity Injury (Upper) General Chief Complaint: Extremity Injury, Upper Stated Complaint: L Shoulder Pain Time Seen by Provider: 06/07/25 09:35 Source: patient and RN notes reviewed Mode of arrival: ambulatory Limitations: no limitations History of Present Illness HPI narrative: 74-year-old male patient presents today complaining of left shoulder pain. Two days ago patient fell off a platform approximately 18 in off the ground onto his bilateral forearms and has been experiencing left shoulder pain. Pain is present only with movement of the shoulder. Denies numbness or tingling of the arm or hand. Currently pain free. Taking motrin for discomfort. Related Data Home Medications ?Medication ?Instructions ?Recorded ?Confirmed ?Last Taken ?Type aspirin 81 mg tablet,delayed 81 mg PO DAILY 08/03/19 1 08/07/24 Unknown History release (Adult Low Dose Aspirin) ferrous sulfate 325 mg (65 mg 325 mg PO BID 09/08/19 1 08/07/24 Unknown History iron) tablet omega-3 fatty acids 1,000 mg 1,000 mg PO DAILY 4 06/07/25 Unknown History capsule (Fish Oil Concentrate) Allergies Allergy/AdvReac Type Severity Reaction Status Date / Time No Known Allergies Allergy Verified 06/07/25 09:25 [facility] Past Medical History Medical History History of bladder stone Fracture of L4 vertebra Traumatic scrotal hematoma Edema of both legs Left hip pain Foot pain, right Heart disease Gout Coronary artery disease Surgical History Surgical History History of heart bypass surgery 04/11/2019 History of bladder surgery 04/08/2019 Family History Family History Father Diabetes mellitus Hypertension Family history of cardiovascular disease Patient's father is , Onset Age: 74 Heart disease Sibling Diabetes mellitus Family history of cardiovascular disease Family history of cardiac disorder, Onset Age: 58 Mother Hypertension Family history of cardiovascular disease, Onset Age: 86 Cerebrovascular accident, Onset Age: 86 Social History Social History (Reviewed 06/07/25 @ 10:08 by Pooja L. Mihelcic, ONCOLOGY PHARMACIST, SOLAR [employer]ERMAL INSTALLER) Smoking status: Never smoker Alcohol intake: current Alcohol use details: occasional Substance use: never Substance use type: does not use Do You Feel Safe in your Home?: Yes Lack of Transportation: No Lack of Food: Never True Current Housing: I Have Housing Concerned About Future Housing: No Difficulty Paying Gas/Electric Bills: No Difficulty Paying for Meds: No Currently Unemployed: No Education: Associate Degree Difficulty w/ Childcare or Family Care: No Living arrangements: alone Additional living arrangements comments: , daughter & grandson Occupation/Education: occupation Additional occupation/education comments: [employer] Comments At time of signature, I have reviewed and agree with nursing past medical, surgical, social and family history unless otherwise noted. Please see nursing chart for further information. There is no relevant family history pertinent to the presenting complaint Exam Narrative: GENERAL: Well-appearing, well-nourished, and in no acute distress. HEAD: Normocephalic, atraumatic. EYES: EOMI. No redness or drainage. Conjunctivae normal. ENT: Mucous membranes pink and moist. NECK: Normal AROM. CHEST: No respiratory distress. EXTREMITIES: Left shoulder:Mild tenderness anteriorly. No tenderness laterally or posteriorly. Decreased range of motion in all directions. Neurovascularly intact SKIN: Warm, dry, no rash. Capillary refill normal. Normal skin turgor. NEURO: No focal deficits. Alert and oriented x3. Gait steady. PSYCH: Normal affect. No signs of depression or anxiety. Course Course Level of Care: Express Care Visit Vital Signs Vital signs: Vital Signs Temperature 97.6 F 06/07/25 09:31 Pulse Rate 72 06/07/25 09:31 Respiratory Rate 16 06/07/25 09:31 Blood Pressure 136/77 06/07/25 09:31 Pulse Oximetry 100 06/07/25 09:31 Oxygen Delivery Room Air 06/07/25 09:31 Temperature 97.6 F 06/07/25 09:31 Pulse Rate 72 06/07/25 09:31 Respiratory Rate 16 06/07/25 09:31 Blood Pressure 136/77 06/07/25 09:31 Pulse Oximetry 100 06/07/25 09:31 Oxygen Delivery Room Air 06/07/25 09:31 Review MDM - Extremity Injury (Upper) MDM Narrative Medical decision making narrative: 74-year-old male patient presents today complaining of left shoulder pain. Two days ago patient fell off a platform approximately 18 in off the ground onto his bilateral forearms and has been experiencing left shoulder pain. Pain is present only with movement of the shoulder. Upon exam, Mild tenderness anteriorly. No tenderness laterally or posteriorly. Decreased range of motion in all directions. Neurovascularly intact. Xray negative. Recommend PCP or ortho follow up for further evaluation. May continue OTC meds for discomfort. Patient agrees with plan. VSS. Anticipatory guidance given. Differential Diagnosis Differential diagnosis: Likely fracture of humerus and other (rotator cuff strain, rotator cuff tear.) Imaging Data Radiologist's impression: ITS Impressions Shoulder X-Ray 06/07/25 10:04 Impression: No acute fracture or malalignment. Critical Care Time Critical Care Time Critical Care Time: No Discharge Plan Discharge Clinical Impression: Injury of left shoulder Qualifiers: Encounter type: initial encounter Qualified Code(s): S49.92XA - Unspecified injury of left shoulder and upper arm, initial encounter Patient Disposition: Home Condition: Stable Instructions: Shoulder Pain (ED) Additional Instructions: Your shoulder x-ray is negative for fracture. Ice the shoulder. Continue Tylenol or ibuprofen for pain, if able. Recommend following up with your PCP or orthopedics in 3-4 days if symptoms are not improving. Patient Language: Hebrew Prescriptions: No Action ferrous sulfate 325 mg (65 mg iron) tablet 325 mg PO BID aspirin [Adult Low Dose Aspirin] 81 mg tablet,delayed release (DR/EC) 81 mg PO DAILY niacin 250 mg tablet 250 mg PO DAILY Qty: 90 2RF omega-3 fatty acids [Fish Oil Concentrate] 1,000 mg capsule 1,000 mg PO DAILY glimepiride 2 mg tablet See Rx Instructions .ROUTE .COMPLEX Qty: 90 1RF Dose Instruction: TAKE 1 TABLET EVERY DAY Rx Instructions: TAKE 1 TABLET EVERY DAY allopurinol 100 mg tablet See Rx Instructions .ROUTE .COMPLEX Qty: 90 1RF Dose Instruction: TAKE 1 TABLET EVERY DAY Rx Instructions: TAKE 1 TABLET EVERY DAY Mounjaro 2.5 mg/0.5 mL pen injector 2.5 mg subcut WEEKLY Qty: 6 3RF metoprolol tartrate 50 mg tablet See Rx Instructions .ROUTE .COMPLEX Qty: 180 1RF Dose Instruction: TAKE 1 TABLET EVERY 12 HOURS Rx Instructions: TAKE 1 TABLET EVERY 12 HOURS atorvastatin 40 mg tablet See Rx Instructions .ROUTE .COMPLEX Qty: 90 1RF Dose Instruction: TAKE 1 TABLET EVERY DAY Rx Instructions: TAKE 1 TABLET EVERY DAY lisinopril 5 mg tablet See Rx Instructions .ROUTE .COMPLEX Qty: 90 1RF Dose Instruction: TAKE 1 TABLET EVERY DAY Rx Instructions: TAKE 1 TABLET EVERY DAY tamsulosin 0.4 mg capsule 0.4 mg PO QHS Qty: 90 1RF metformin 500 mg tablet 500 mg PO BID Qty: 180 1RF Follow-up/Referrals: Paresh Forbes MD [Primary Care Provider, Family Practice] Mehrdad Apodaca MD [Physician, Orthopedics] Time of Disposition: 10:16
== END 2025-06-07 10:20 | disposition home or self-care (01) ==
PROVIDERS: Emergency Provider Nurse Practitioner; PCP Family Medicine
DX: S49.92XA Unspecified injury of left shoulder and upper arm, initial encounter (principal); I25.10 Atherosclerotic heart disease of native coronary artery without angina pectoris; Z79.82 Long term (current) use of aspirin; W17.89XA Other fall from one level to another, initial encounter
CPT/HCPCS: 73030; 99213; G0463